=== PATIENT | male | born 1975 | race Caucasian/White ===

== ENCOUNTER 2024-07-25 04:05 | Emergency (ER) | payer BC ==
[2024-07-25] MEDS ORDERED: Lorazepam 0.5 MG TAB ONE (04:40)
== END 2024-07-25 04:50 | disposition home or self-care (01) ==
LOC: NAV ERS 04:05
DX: C44.41 Basal cell carcinoma of skin of scalp and neck (principal); F41.9 Anxiety disorder, unspecified; F17.210 Nicotine dependence, cigarettes, uncomplicated
CPT/HCPCS: 99283

== ENCOUNTER 2025-04-01 21:39 | Emergency (ER) | payer BC, SELFPAY ==
[2025-04-01 23:20] LABS: Glucose, Urine (Dipstick) Negative (Negative); Leukocyte Negative (Negative); Protein, Urine (Dipstick) 30 mg/dL (Neg-Trace); Specific Gravity, Urine Greater/Equal 1.030 (1.005-1.030)
[2025-04-01 23:27] LABS: Bacteria/HPF Rare-Few HPF (None Seen); CAUTI Indications for Culture Acute Hematuria; Mucous/LPF 2+ LPF (<2+); RBC/HPF 0-3 HPF (0-3)
[2025-04-01 23:28] LABS: Sperm/HPF 1+ HPF (None Seen)
[2025-04-01 23:29] LABS: Urine Culture Reflex No No
== END 2025-04-01 23:39 ==
LOC: NAV ERS 21:39
DX: M54.50 Low back pain, unspecified (principal); R31.9 Hematuria, unspecified; F17.210 Nicotine dependence, cigarettes, uncomplicated; F17.290 Nicotine dependence, other tobacco product, uncomplicated
CPT/HCPCS: 72072; 72100; 81001

== ENCOUNTER 2025-04-16 00:56 | Emergency (ER) | payer OTHER | END 2025-04-16 02:08 | disposition home or self-care (01) | LOC: NAV ERS 00:56 | DX: S99.922A Unspecified injury of left foot, initial encounter (principal); S99.921A Unspecified injury of right foot, initial encounter; M54.50 Low back pain, unspecified; F17.290 Nicotine dependence, other tobacco product, uncomplicated; X58.XXXA Exposure to other specified factors, initial encounter | CPT/HCPCS: 99283 ==